=== PATIENT | female | born 1965 | race Caucasian/White ===

== ENCOUNTER 2018-02-20 19:03 | Emergency (ER) | payer MEDICARE, OTHER, SELFPAY | END 2018-02-20 22:59 | disposition home or self-care (01) | PROVIDERS: Emergency Provider Emergency Medicine; PCP Physician Assistant; Visit Provider Emergency Medicine | DX: R10.9 Unspecified abdominal pain (principal) | CPT/HCPCS: 36415; 74177; 80053; 83605; 83690; 85025; 93005; 93010; 96360; 96361; 99058; 99284 ==

== ENCOUNTER → 2021-01-15 10:45 | Outpatient (CLI) | payer MEDICARE, OTHER, SELFPAY ==
--- NOTE | 2021-01-15 | DI.MG.S_ITS ---
BILATERAL DIGITAL SCREENING MAMMOGRAM 3D/2D WITH CAD: 01/15/2021 CLINICAL: Routine screening. Comparison is made to exams dated: 02/22/2015 mammogram, 03/01/2018 mammogram, and 04/24/2019 mammogram - [facility]. There are scattered fibroglandular elements in both breasts. Current study was also evaluated with a Computer Aided Detection (CAD) system. No significant masses, calcifications, or other findings are seen in either breast. There has been no significant interval change. IMPRESSION: NEGATIVE There is no mammographic evidence of malignancy. A 1 year screening mammogram is recommended. This exam was interpreted at Station ID: [id number]. NOTE: For mammograms, a report in lay terms will be sent to the patient. Approximately 15% of breast malignancies will not be visualized mammographically. In the management of a palpable breast mass, a negative mammogram must not discourage biopsy of a clinically suspicious lesion. Electronically Signed By: Pérez roth/rajan:01/15/2021 12:25:19 letter sent: Normal Exam ACR BI-RADS Category 1: Negative [id number]
== END ==
PROVIDERS: PCP Family Medicine; Referring Provider Family Medicine; Visit Provider Family Medicine
DX: Z12.31 Encounter for screening mammogram for malignant neoplasm of breast (principal)
CPT/HCPCS: 77063; 77067

== ENCOUNTER → 2022-07-12 06:47 | Outpatient (CLI) | payer MEDICARE, OTHER, SELFPAY ==
--- NOTE | 2022-07-12 06:50 | DI.ECHO.S_ITS ---
[facility] +---------+ : : [address] [address] : : : : [id number] : : : : Phone: [phone]---------+ Echocardiogram Report + + :Name: SUZANNE GONZALEZ Study Date: 07/12/2022 Height: 67 in : :[facility] ReadingLocation: Weight: 220 lb : : Gender: Female BSA: 2.1 m2 : :: 1965 Age: 56 yrs BP: 128/87 mmHg: :Reason For Study: SOB : :Ordering Physician: : :Pippa Kumar Performed By: Esau Mack : :Referring: Pippa Kumar : + + Interpretation Summary Normal both left and right ventricle size and function. The ejection fraction is 55-60%. No valvular abnormality Procedure: A two-dimensional transthoracic echocardiogram with color flow and Doppler was performed. The study quality was technically adequate. There is no prior echocardiogram noted for this patient. The patient was in normal sinus rhythm during the exam. Left Ventricle: The left ventricle is normal in size and wall thickness. Left ventricular systolic function is normal. The ejection fraction is estimated to be 55-60%. There are no focal wall motion abnormalities. Diastolic parameters suggest probable normal left ventricular diastolic function and normal filling pressures. Right Ventricle: The right ventricle is normal in size and function. Atria: Both atria are normal in size. The interatrial septum grossly appears intact with no obvious evidence for an atrial septal defect. Mitral Valve: The mitral valve is normal in structure and function. There is no mitral regurgitation noted. Aortic Valve: The aortic valve is normal in structure and function. No aortic regurgitation is present. Tricuspid Valve: The tricuspid valve is normal in structure and function. There is trace tricuspid regurgitation. The right ventricular systolic pressure is estimated to be at least 23 mmHg based on an estimated right atrial pressure of 3 mm Hg. Pulmonic Valve: The pulmonic valve is normal in structure and function. There is no pulmonic valvular regurgitation. Great Vessels: The aortic root is normal size. The dimensions of the ascending aorta are normal. The IVC is of normal diameter and collapses greater than 50% with a sniff. This suggests a low right atrial pressure of 3 mm Hg. Pericardium/ Pleura There is no pericardial effusion. There is no pleural effusion. MMode/2D Measurements & Calculations LVIDd: 4.9 cm LVOT diam: 2.1 cm LVIDs: 3.4 cm Ao root diam: 3.0 cm FS: 30.6 % asc Aorta Diam: 3.2 cm IVSd: 0.80 cm LVPWd: 0.90 cm LV lynne. diameter/BSA (cm/m^2): 2.3 LV sys. diameter/BSA (cm/m^2): 1.6 LA dimension: 3.2 cm RA long axis: 5.1 cm LA A2 area: 13.7 cm2 LA A4 area: 15.2 cm2 LA length (vol): 4.2 cm LA vol: 42.0 ml LA vol index: 19.9 ml/m2 TAPSE_phl: 2.6 cm Doppler Measurements & Calculations Ao V2 max: 131.0 cm/sec LVOT Max Carlin: 114.0 cm/sec Ao V2 mean: 90.5 cm/sec LV V1 max P.2 mmHg Ao max P.0 mmHg LV V1 VTI: 23.2 cm Ao mean P.0 mmHg MOLLY(I,D): 3.1 cm2 Ao V2 VTI: 26.2 cm MOLLY(V,D): 3.0 cm2 sev ratio: 0.89 MOLLY indexed to BSA (cm^2/m^2): 1.5 MV E max carlin: 52.3 cm/sec TR max carlin: 225.0 cm/sec MV A max carlin: 66.8 cm/sec TR max P.3 mmHg MV E/A: 0.78 Med Peak E' Carlin: 6.1 cm/sec E/E' med: 8.6 Lat Peak E' Carlin: 7.6 cm/sec E/E' lat: 6.8 E/e' average: 7.7 MV dec time: 0.27 sec SV(LVOT): 80.4 ml AV VR_phl: 0.87 MOLLY(VTI)/BSA_phl: 1.4 MV P1/2t-pr_phl: 80.0 msec Electronically signed by: Supriya Patino on Reading Physician:07/12/2022 12:13 PM
--- NOTE | 2022-07-12 06:51 | DI.US.S_ITS ---
PROCEDURE: US CAROTID DOPPLER BI INDICATIONS: HYPERLIPIDEMIA/SHORTNESS OF BREATH TECHNIQUE: Color and pulse Doppler interrogation was performed of both carotid systems, with image documentation and velocity measurements. COMPARISON: None. FINDINGS: Stenosis calculations are based on SRU (Society of Radiologists in Ultrasound) criteria. Right side: Brachial blood pressure: 129/85 mm Hg. Common carotid artery peak systolic velocity: 109 cm/sec. Internal carotid artery peak systolic velocity: 107 cm/sec. Internal carotid artery end diastolic velocity: 40 cm/sec. External carotid artery peak systolic velocity: 114 cm/sec. ICA/CCA peak systolic ratio: 1.0 . Lopez scale imaging description: No atheromatous plaque or hemodynamically significant stenosis Percent internal carotid artery stenosis: No stenosis. Vertebral artery: Flow direction is antegrade. Left side: Brachial blood pressure: 130/87 mm Hg. Common carotid artery peak systolic velocity: 105 cm/sec. Internal carotid artery peak systolic velocity: 88 cm/sec. Internal carotid artery end diastolic velocity: 38 cm/sec. External carotid artery peak systolic velocity: 79 cm/sec. ICA/CCA peak systolic ratio: 0.8 . Lopez scale imaging description: No atheromatous plaque or hemodynamically significant stenosis. Percent internal carotid artery stenosis: No stenosis. Vertebral artery: Flow direction is antegrade. IMPRESSION: No sonographic evidence for stenosis of the bilateral internal carotid arteries. Dictated by: Kathi Houston M.D. on 07/12/2022 at 9:31 Approved by: Kathi Houston M.D. on 07/12/2022 at 9:34
== END ==
PROVIDERS: PCP Family Medicine; Referring Provider Family Medicine; Visit Provider Family Medicine
DX: E78.5 Hyperlipidemia, unspecified (principal); R06.02 Shortness of breath; Z82.49 Family history of ischemic heart disease and other diseases of the circulatory system
CPT/HCPCS: 93306; 93880

== ENCOUNTER → 2025-03-10 10:54 | Outpatient (CLI) | payer MEDICARE, OTHER, SELFPAY ==
[2025-03-10 11:43] LABS: Influenza A - CEPHEID Flu A NEGATIVE (NEGATIVE); Influenza B - CEPHEID Flu B NEGATIVE (NEGATIVE); Respiratory Syncytial Virus Negative (Negative)
[2025-03-10 11:44] LABS: COVID-19 CEPHEID 4-PLEX PCR Negative (Negative)
== END ==
PROVIDERS: Visit Provider Physician Assistant Surgical
DX: R05.1 Acute cough (principal)
CPT/HCPCS: 0241U

== ENCOUNTER → 2025-08-23 10:12 | Outpatient (CLI) | payer MEDICARE, OTHER, SELFPAY ==
--- NOTE | 2025-08-23 10:14 | DI.NM.S_ITS ---
PROCEDURE: NM EXERCISE TREADMILL NON NUC COMPARISON: None. INDICATIONS: precordial chest pain FINDINGS: Patient exercised per the standard Danny protocol. Total exercise time was 9 minutes and 34 seconds. Test was terminated secondary to fatigue. Maximal heart rate attained is 160 bpm which is 100% of maximum predicted heart rate. Maximum blood pressure was 176/[place] [address]. EROS -39%. 10.1 METS. No ischemic changes noted. Occasional PVCs present with exercise but no ventricular dysrhythmias present. No chest pains voiced. Normal heart rate and blood pressure response to exercise present. IMPRESSION: 1. Negative exercise treadmill stress test for ischemia. 2. Very good exercise capacity. Dictated by: Jesus Still M.D. on 08/23/2025 at 12:41 Approved by: Jesus Still M.D. on 08/23/2025 at 12:43
== END ==
LOC: NUCM 10:13
PROVIDERS: Referring Provider Internal Medicine Cardiovascular Disease; Visit Provider Internal Medicine Cardiovascular Disease
DX: R07.2 Precordial pain (principal); E78.00 Pure hypercholesterolemia, unspecified; Z82.49 Family history of ischemic heart disease and other diseases of the circulatory system; R06.02 Shortness of breath
CPT/HCPCS: 93017